=== PATIENT | female | born 1970 | race Caucasian/White ===

== ENCOUNTER 2017-05-04 17:02 | Emergency (ER) | payer SELFPAY ==
[~2017-05-04] VITALS: Ht 172.7 cm; Wt 113.4 kg
--- NOTE | 2017-05-04 17:13 | NUR ---
PT SELF PRESENTS TO THE ED. EXHIBITING BIZARRE BEHAVIOR. TALKING TO HERSELF. STATES SHE IS HERE AT THE ER TO REST FOR 2-3 DAYS. DENIES SI/HI. DENIES PAIN. ASKING FOR FOOD. PLACED ON MONITOR. STABLE VITALS. AWAITING MD GRISSOM.
--- NOTE | 2017-05-04 17:24 | NUR ---
DR FAGAN AT BEDSIDE FOR EVAL.
--- NOTE | 2017-05-04 17:31 | NUR ---
CLASSIFICATION COUNSELOR AT BEDSIDE FOR BLOOD DRAW.
[2017-05-04 17:37] LABS: BASOPHILS # (AUTO) 0.1 /CMM (0.0-0.2); BASOPHILS % (AUTO) 1.3 % (0.0-2.0); EOSINOPHILS # (AUTO) 0.1 /CMM (0.0-0.7); EOSINOPHILS % (AUTO) 2.4 % (0.0-6.0); HEMATOCRIT 35 % (33-45); HEMOGLOBIN 11.9 g/dL (11.5-14.8); LYMPHOCYTES # (AUTO) 1.9 /CMM (0.8-4.8); MEAN CORPUSCULAR HEMOGLOBIN 31 PG (26.0-33.0); MEAN CORPUSCULAR HGB CONC 34 g/dl (31.0-36.0); MEAN CORPUSCULAR VOLUME 93 fL (82-100); MONOCYTES # (AUTO) 0.5 /CMM (0.1-1.30); MONOCYTES % (AUTO) 7.4 % (2.0-12.0); NEUTROPHILS # (AUTO) 3.7 /CMM (1.8-8.9); NEUTROPHILS % (AUTO) 58.9 % (43.0-81.0); PLATELET COUNT (AUTO) 215 /CMM (150-450); RDW COEFFICIENT OF VARIATION 12.9 (11.5-15.0); RED BLOOD CELL COUNT(AUTO) 3.81 MIL/uL (4.0-5.2); WHITE BLOOD COUNT (AUTO) 6.2 K/uL (4.3-11.0)
[2017-05-04 17:49] LABS: CALCIUM, SERUM 8.8 mg/dL (8.5-10.1); CARBON DIOXIDE 29 mmol/L (21-32); CHLORIDE 106 mmol/L (98-107); CREATININE 1.1 mg/dL (0.6-1.3); GLUCOSE 82 mg/dL (74-106); POTASSIUM 3.6 mmol/L (3.5-5.1); SODIUM SERUM 143 mmol/L (136-145); UREA NITROGEN, BLOOD 10 mg/dL (7-18)
[2017-05-04 17:52] LABS: ALCOHOL, BLOOD < 3 mg/dL (0-0)
[2017-05-04 17:56] LABS: TROPONIN I < 0.017 ng/mL (0.00-0.056)
--- NOTE | 2017-05-04 18:50 | NUR ---
CORNELIO WINTERS AT BEDSIDE FOR PSYCH EVAL.
--- NOTE | 2017-05-04 19:23 | NUR ---
Patient discharged to home in stable condition. Written and verbal after care instructions given. Patient verbalizes understanding of instruction. ambulatory with a steady gait
[2017-05-04 19:24] VITALS: BP 120/70
== END 2017-05-04 19:25 | disposition home or self-care (01) ==
LOC: ER 17:09
DX: F29 Unspecified psychosis not due to a substance or known physiological condition (principal); E11.9 Type 2 diabetes mellitus without complications; F14.10 Cocaine abuse, uncomplicated; Z91.14 Patient's other noncompliance with medication regimen; Z88.1 Allergy status to other antibiotic agents; F17.200 Nicotine dependence, unspecified, uncomplicated
CPT/HCPCS: 36415; 80048; 80305; 84484; 84703; 85025; 93005; 99285; A4606; G0480; Z7610